=== PATIENT | male | born 1995 | race Two or more races ===

== ENCOUNTER 2020-03-18 19:38 | Emergency (ER) | payer BC, MEDICAID ==
[~2020-03-18] VITALS: Ht 177.8 cm; Wt 104.0 kg
[2020-03-18] MEDS ORDERED: KETOROLAC 30MG/ML VIAL IM ONE (20:30)
[2020-03-18 21:32] VITALS: BP 149/100
== END 2020-03-18 21:33 | disposition home or self-care (01) ==
LOC: ER 19:38
DX: S80.02XA Contusion of left knee, initial encounter (principal); S40.022A Contusion of left upper arm, initial encounter; Z88.0 Allergy status to penicillin; V23.4XXA Motorcycle driver injured in collision with car, pick-up truck or van in traffic accident, initial encounter; Y93.89 Activity, other specified; Y92.014 Private driveway to single-family (private) house as the place of occurrence of the external cause
CPT/HCPCS: 71045; 73060; 73562; 96372; 99284; J1885